=== PATIENT | male | born 1995 | race African-American/Black ===

== ENCOUNTER 2023-03-18 12:51 | Inpatient (IN) | payer OTHER, SELFPAY ==
[2023-03-18 12:57] VITALS: BP 116/80; BP 144/96; PULSE 68; PULSE 69; RESP 18; TEMP 36.5; O2SAT 100; O2SAT 99; BMI 26.6
--- NOTE | 2023-03-18 13:11 | ED_ITS ---
HPI - Psych General Chief Complaint: Psychiatric Symptoms Stated Complaint: SI WAS TRYING TO RUN INTO TRAFFIC Time Seen by Provider: 03/18/23 12:55 Source: patient, RN notes reviewed and old records reviewed Mode of arrival: ambulatory History of Present Illness HPI Narrative: 28-year-old male with no known past medical history presenting to the ED via EMS after being found on the [facility] border making SI and HI statements, threatening to run into traffic and or hang himself with sheet. Patient admits to attempting to hang himself with sheet [employer]. Reports SI with plan to hang himself, HI, auditory and visual hallucinations. States voices are telling him to hurt himself. Reports recently moved to this area from [place]. Reports compliance with prescribed medications. Denies abdominal pain, nausea/vomiting, CP/SOB Related Data Home Medications Medication Instructions Recorded Confirmed clonazepam 0.5 mg tablet 0.5 mg PO BID PRN Anxiety 03/18/23 03/18/23 clonidine HCl 0.1 mg tablet 0.1 mg PO TID 03/18/23 03/18/23 escitalopram oxalate 10 mg tablet 10 mg PO DAILY 03/18/23 03/18/23 mirtazapine 15 mg tablet 15 mg PO BEDTIME 03/18/23 03/18/23 oxcarbazepine 300 mg tablet 300 mg PO BID 03/18/23 03/18/23 Allergies Allergy/AdvReac Type Severity Reaction Status Date / Time No Known Allergies Allergy Verified 03/18/23 13:05 Review of Systems 2 Review of Systems: Constitutional: No Fever, No Chills,o Fatigue, No Malaise ENT/Mouth: o Ear Pain, No sore throat, No Rhinorrhea, No Swallowing Difficulty Eyes: No Eye Pain, No Swelling, No Redness,No Vision Changes Cardiovascular: No Chest Pain, No SOB,No Edema, No Palpitations Respiratory: No Cough, No Sputum, No Dyspnea Gastrointestinal: No Nausea, No Vomiting, No Diarrhea, No Constipation, No Abdominal pain Genitourinary: No irregular bleeding, No Dysuria, No Urinary Frequency, No Hematuria Musculoskeletal: No joint pain, No Myalgias, No Joint Swelling Skin: No Skin Lesions, No rash Neuro: No Weakness, No Headache Psych: No Anxiety/Panic, +Depression, +SI/HI/AH/VH, + Social Issues Yes all other systems are reviewed and are negative Constitutional: Constitutional: Reports as per [facility] Past Medical History Attestation statement: The following information was validated with the patient. Source: old records reviewed Social History Social History Alcohol intake: never Smoked in Last 30 Days: No Use of substances other than those prescribed or required for medical reasons: No Advance Directives: No Advance Directives Information Provided: No Healthcare Proxy: No Guardian: No Physical Exam 2 Vital Signs: Vital Signs: Last Vital Signs Temp 98.7 F 03/18/23 19:51 Pulse 61 03/19/23 06:35 Resp 16 03/19/23 06:35 BP 101/65 03/19/23 06:35 Pulse Ox 99 03/19/23 06:35 O2 Del Method Room Air 03/19/23 06:35 BMI result Body Mass Index 26.6 Const: General: cooperative and no acute distress O rientation/consciousness: patient oriented x3 Limitations: no limitations HEENT: Head: Yes normal to inspection and Yes atraumatic Ears: hearing grossly normal bilaterally General nose exam: Normal external nose present Face and sinus: Yes normal facial exam Throat: Yes posterior oropharynx normal, Yes uvula midline, No peritonsillar mass and No uvular edema Eyes: General: appearance normal, both eyes and all related structures EOM: EOMs intact bilaterally Neck: Other: No external swelling/king or erythema. No hematoma. No stridor Neck: Yes normal visual inspection, Yes full ROM, Yes no lymphadenopathy, Yes no meningeal signs, Yes supple, No anterior neck swelling and No torticollis Resp: Effort & Inspection: normal respiratory effort and no respiratory distress Auscultation: clear to auscultation bilaterally Cardio: Rate: regular rate Heart sounds: S1 normal heart sound present and S2 normal heart sound present GI: Inspection: Yes normal to inspection Palpation (GI): Soft to palpation, nontender, no guarding and not rigid Skin: Rashes: no rashes Wounds: no wounds Neuro: General: patient oriented x3, tone normal, no meningeal signs and CN's II-XI intact bilaterally Cranial nerves: Yes CN's II-XII intact bilaterally Gait exam (Neuro): Normal gait present Extrem: General: Yes normal to inspection Psych: Thought content: Suicidality present, Homicidality present and Hallucination(s) present auditory and visual Course Course Course Narrative: Labs reassuring. Tox screen negative. Patient medically cleared for care team evaluation. Physician observation initiated at 16:12 -1630--ED care transferred to [facility] pending care team evaluation Reevaluation(s) Reevaluation #1: Advised by nursing staff that soledad attempted to wrap sheets around his neck while in room. No ecchymosis to the neck, inability to manage secretions, denies ear pain, no hematemesis, no swelling of the oral pharynx, no conjunctival hemorrhage, hoarseness of the voice, no confusion. Bedding was removed from patients orom. At this time he is calm, and appears withdrawn. Pending CARE team evaluation. Time: 17:14 Reevaluation #2: VSS, attempt to wrap bed sheet around his neck and commit suicide, patient now is 1-1 observation under Section 12 and bed search is underway by care team. Time: 07:24 Medications Administered Generic Name Dose Route Start Last Admin Trade Name Freq PRN Reason Stop Dose Admin Clonazepam 0.5 mg 03/18/23 19:15 03/18/23 19:20 Clonazepam 0.5 Mg Tablet PO 0.5 mg BID PRN Administration Anxiety Clonidine HCl 0.1 mg 03/18/23 21:00 03/18/23 19:52 Clonidine Hcl 0.1 Mg Tablet PO 0.1 mg TID HAMILTON Administration Protocol Mirtazapine 15 mg 03/18/23 21:00 03/18/23 19:52 Mirtazapine 15 Mg Tablet PO 15 mg BEDTIME HAMILTON Administration Oxcarbazepine 300 mg 03/18/23 21:00 03/18/23 19:52 Oxcarbazepine 300 Mg Tablet PO 300 mg BID HAMILTON Administration Discontinued Medications Generic Name Dose Route Start Last Admin Trade Name Freq PRN Reason Stop Dose Admin Lorazepam 1 mg 03/18/23 13:21 03/18/23 13:30 Lorazepam 1 Mg Tablet PO 03/18/23 13:22 Not Given ONCE ONE Medical Decision Making Medical Decision Making [facility] Narrative: 28-year-old male with no known past medical history presenting to the ED via EMS after being found on the [place] border making SI and HI statements, threatening to run into traffic and or hang himself with sheet. On exam vital signs stable, NAD, eliciting suicidal, homicidal and hallucinations auditory and visual. Rule out organic causes and substance abuse. No evidence of strangulation, no neck hematoma, swelling or stridor. Talking in complete sentences. Plan: Labs, tox screen, care team consult Please refer to course for remaining clinical decision making, interpretation of labs/imaging results, and discussions with consultants and/or family members. Differential Diagnosis Differential Diagnoses: The differential diagnosis associated with the presentation includes As above Admission/Observation Consideration of admission/observation: Escalation of care including admission/observation considered Consult Healthcare Provider Management of the patient was discussed with: Behavioral Health Provider Lab Data MDM Lab Attestation statement: I reviewed the patient's lab results. 03/18/23 13:42 03/18/23 13:42 Labs: Lab Results 03/18/23 03/19/23 Range/Units 13:42 04:55 WBC 4.0 L (4.8-10.8) X10*3/uL RBC 5.27 (4.60-5.80) X10*6/uL Hgb 13.4 L (14.0-18.0) g/dl Hct 42.3 (42.0-52.0) % MCV 80.3 (80.0-98.0) fL MCH 25.4 L (27.0-33.0) pg MCHC 31.7 (31.0-36.0) g/dl RDW 13.6 (11.0-16.0) % Plt Count 147 L (160-400) X10*3/uL MPV 10.0 (9.4-12.4) fL Immature Gran % (Auto) 0.2 (0.0-0.4) % Neut % (Auto) 40.7 L (45-73) % Lymph % (Auto) 45.8 H (20-40) % Daniels % (Auto) 9.9 (2-11) % Eos % (Auto) 2.7 (0-4) % Baso % (Auto) 0.7 (0-2) % Lymph # (Auto) 1.9 (1.2-4.9) X10*3/uL Daniels # (Auto) 0.4 (0.1-1.2) X10*3/uL Eos # (Auto) 0.1 (0.0-0.4) X10*3/uL Baso # (Auto) 0.0 (0.0-0.2) X10*3/uL Abs Immat Gran (auto) 0.01 (0.00-0.03) X10*3/uL Absolute Neuts (auto) 1.6 L (2.0-8.3) x10*3/uL Absolute Nucleated RBC 0.000 (0.0-0.012) X10*3/uL Nucleated RBC % (auto) 0.0 (0.0-0.2) /100WBC Sodium 138 (135-145) mmol/L Potassium 4.2 (3.3-5.1) mmol/L Chloride 104 (96-108) mmol/L Carbon Dioxide 27 (22-29) mmol/L Anion Gap 11 L (12-20) BUN 16 (9-16) mg/dL Creatinine 0.94 (0.5-1.4) mg/dL Estim Creat Clear Calc 110.3 Estimated GFR > 60 Random Glucose 93 (60-115) mg/dL Calcium 9.5 (8.4-10.2) mg/dL Total Bilirubin 0.6 (0.0-1.0) mg/dL AST 18 (5-37) U/L ALT 36 (0-40) U/L Alkaline Phosphatase 45 (39-117) U/L Total Protein 7.4 (6.5-8.0) g/dL Albumin 4.4 (3.5-5.0) g/dL Urine Color Yellow Urine Appearance Clear Urine pH 6.0 (5.0-9.0) Ur Specific [place] 1.025 (1.005-1.025) Urine Protein Negative (Neg-Trace) mg/dL Urine Glucose (UA) Negative (Negative) mg/dL Urine Ketones Negative (Negative) mg/dL Urine Blood Trace H (Negative) Urine Nitrite Negative (Negative) Ur Leukocyte Esterase Negative (Negative) Urine RBC 3-5 H (0-2) /HPF Urine WBC 0-5 (0-5) /HPF Ur Squamous Epith Cells 0-2 (0-2) /HPF Urine Bacteria None Seen (None Seen) Hyaline Casts 0-2 (0-2) /LPF Salicylates < 5.0 L (15-30) mg/dL Urine Opiates Screen Not Detected (Not Detect) Urine Fentanyl Screen Not Detected (Not Detect) Acetaminophen < 17 (<30) mcg/mL Ur Barbiturates Screen Not Detected (Not Detect) Ur Phencyclidine Scrn Not Detected (Not Detect) Ur Amphetamines Screen Not Detected (Not Detect) U Benzodiazepines Scrn Not Detected (Not Detect) Urine Cocaine Screen Not Detected (Not Detect) U Marijuana (THC) Screen Not Detected (Not Detect) Ethyl Alcohol < 10 mg/dL COVID-19 ([facility]) Negative (Negative) COVID-19 Clin Com See Note Radiology Impression Discussion of test interpretation with radiology: I have reviewed the radiologist's reading. External Record Review External record reviewed: Inpatient record, Office record, Outpatient record, Prior outpatient labs, Prior outpatient radiology, Primary care record and Outside ED record Tests considered The following testing was considered but not selected: As above Social Determinants Patient?s care significantly limited by Social Determinants of Health including: Inadequate housing, Low income, Alcoholism and drug addiction in family, Problems related to primary support group and Unemployment Discharge Plan Discharge Clinical Impression: Suicidal ideation, Homicidal ideations, Hallucinations Patient Disposition: Still a Patient Prescriptions: No Action clonidine HCl 0.1 mg tablet 0.1 mg PO TID clonazepam 0.5 mg tablet 0.5 mg PO BID PRN (Reason: Anxiety) oxcarbazepine 300 mg tablet 300 mg PO BID mirtazapine 15 mg tablet 15 mg PO BEDTIME escitalopram oxalate 10 mg tablet 10 mg PO DAILY Interventions: [place]-Suicide Risk Severity Scale Last Done: 03/19/23 03:44
--- NOTE | 2023-03-18 13:13 | PC.NURSE ---
Notified Yanet AMEZCUA patient banging his head on wall stating get out of my head . stated he tried to hang himself with a sheet thats why his throat is hurting. Yanet AMEZCUA here to assess patient.
[2023-03-18 13:48] LABS: MANUAL DIFF FLAG NO
[2023-03-18 13:52] LABS: Basophils Percent Auto 0.7 % (0-2); Eosinophils Absolute Auto 0.1 X10*3/uL (0.0-0.4); Eosinophils Percent Auto 2.7 % (0-4); Hematocrit 42.3 % (42.0-52.0); Hemoglobin 13.4 g/dl (14.0-18.0); Imm Gran Abs Auto 0.01 X10*3/uL (0.00-0.03); Imm Gran Pct Auto 0.2 % (0.0-0.4); Lymphocytes Absolute Auto 1.9 X10*3/uL (1.2-4.9); Lymphocytes Percent Auto 45.8 % (20-40); Mean Corpuscular HGB Conc 31.7 g/dl (31.0-36.0); Mean Corpuscular Hemoglobin 25.4 pg (27.0-33.0); Mean Corpuscular Volume 80.3 fL (80.0-98.0); Monocytes Absolute Auto 0.4 X10*3/uL (0.1-1.2); Monocytes Percent Auto 9.9 % (2-11); Neutrophils Absolute Auto 1.6 x10*3/uL (2.0-8.3); Neutrophils Percent Auto 40.7 % (45-73); Platelet Count 147 X10*3/uL (160-400); Red Blood Count 5.27 X10*6/uL (4.60-5.80); Red Cell Distribution Width 13.6 % (11.0-16.0)
[2023-03-18 13:57] LABS: Appearance Urine Clear; Color Urine Yellow; Glucose Urine UA Negative (Negative); Leukocyte Esterase Urine Negative (Negative); Nitrite Urine Negative (Negative); Specific Gravity - Urine 1.025 (1.005-1.025); UMIC TRIGGER UACC YES; Urine Blood Trace (Negative); Urine Ketones Negative (Negative); Urine Protein Negative (Neg-Trace)
[2023-03-18 13:59] LABS: Bacteria Urine None Seen (None Seen); Hyaline Casts Urine 0-2 /LPF (0-2); Squamous Epithelial Cell Urine 0-2 /HPF (0-2); WBC Urine 0-5 /HPF (0-5)
[2023-03-18 14:06] LABS: Amphetamine Screen Urine Not Detected (Not Detect); Barbiturates, Urine Not Detected (Not Detect); Benzodiazepines Screen Urine Not Detected (Not Detect); Cannabinoid Screen Urine Not Detected (Not Detect); Cocaine Screen Urine Not Detected (Not Detect); Fentanyl, urine Not Detected (Not Detect); Opiate Screen Urine Not Detected (Not Detect); Phencyclidine Screen Urine Not Detected (Not Detect)
[2023-03-18 14:07] LABS: Alanine Aminotransferase 36 U/L (0-40); Albumin Level 4.4 g/dL (3.5-5.0); Alkaline Phosphatase 45 U/L (39-117); Anion Gap 11 (12-20); Aspartate Amino Transferase 18 U/L (5-37); Bilirubin Total 0.6 mg/dL (0.0-1.0); Blood Urea Nitrogen 16 mg/dL (9-16); Calcium 9.5 mg/dL (8.4-10.2); Carbon Dioxide 27 mmol/L (22-29); Chloride 104 mmol/L (96-108); Creatinine Clr Calc Pharmacy 110.3; Estimated Glomerular Filt Rate > 60; Glucose Random 93 mg/dL (60-115); Potassium 4.2 mmol/L (3.3-5.1); Sodium 138 mmol/L (135-145); Total Protein 7.4 g/dL (6.5-8.0)
[2023-03-18 14:13] LABS: Acetaminophen LAB < 17 mcg/mL (<30); Ethanol < 10 mg/dL; Salicylate < 5.0 mg/dL (15-30)
--- NOTE | 2023-03-18 17:09 | PC.NURSE ---
Patient tried to strangle himself with the blanket. Went in room attempted to remove he fought against taking it off we hit panic button. Security and staff came to assist. blanket removed from neck. Then blankets, sheets, and pillows removed from room. Is going to be sec. 12 inpatient [place] search [place].
--- NOTE | 2023-03-18 19:17 | PHA.MEDREC ---
Pharmacy Consult ? Medication Reconciliation Pharmacy has reviewed the medication reconciliation completed by Prashant.
[2023-03-18] MEDS: clonazePAM 0.5 MG TABLET PO (19:20)
[2023-03-18 19:51] VITALS: BP 113/69; PULSE 67; RESP 16; TEMP 37.1; O2SAT 98
[2023-03-18] MEDS: OXcarbazepine 300 MG TABLET PO (19:52)
[2023-03-18] MEDS: cloNIDine HCL 0.1 MG TABLET PO (19:52)
[2023-03-18] MEDS: Mirtazapine 15 MG TABLET PO (19:52)
--- NOTE | 2023-03-18 19:58 | PC.NURSE ---
Patient is placed on one-to-one observation for his suicidal attempt/gesture per provider's order, linens and blanket were made available for patient to ensure patient dignity, patient contracted for the safety, patient's disposition made aware requested to have send him to [facility], disposition per care team is section 12 inpatient bed search, patient contracted for the safety, patient was moved closer to Nurses station to enhance the supervision, VSS, Klonopin 0.5 mg administered at 1920 pending effect, compliant with HS medication, behavior non concerning at this time, watching TV, will continue to monitor.
[2023-03-19 05:24] LABS: COVID-19 Test Negative (Negative); IDNOW Serial# BCCEAD1C
--- NOTE | 2023-03-19 06:20 | PC.NURSE ---
Patient slept through the night, medication compliant, patient is on one-to-one for observation due to SA in the unit, medication compliant, disposition is section 12 inpatient bed search, will continue to monitor.
[2023-03-19 06:35] VITALS: BP 101/65; PULSE 61; RESP 16; O2SAT 99
[2023-03-19 09:42] VITALS: BP 128/69; PULSE 78; RESP 18; TEMP 36.6; O2SAT 99
[2023-03-19] MEDS: OXcarbazepine 150 MG TABLET PO ×2 (10:03→21:12)
[2023-03-19] MEDS: Escitalopram Oxalate 20 MG TABLET PO (10:03)
[2023-03-19 15:08] VITALS: RESP 18
--- NOTE | 2023-03-19 15:10 | PC.NURSE ---
Laci is currently on a 1:1 after placing a sheet around his neck and making SI statements yesterday. Today while on the 1:1 Laci was observed placing a pillow over his face when redirected from this behavior he began making statements toward staff and stating I'll punch you in the face . you better call security you're going to need them . Pt was able to calm down when the MD entered the room and he was told that behavior would not be tolerated. Laci verbalized understanding this. During morning med pass Laci stated that he was just in a facility and that they changed his dosage of trileptal to 150mg BID and Effexor 20mg once daily. He stated that the last prescriptions form Sept in the computer are not accurate as this facility was making medication adjustments. Laci did not disclose what facility he was just a patient in. Endorsing SI but without a plan today. Staff will continue to monitor.
[2023-03-19 15:40] VITALS: BP 123/82; PULSE 92; RESP 17; TEMP 36.8; O2SAT 98
--- NOTE | 2023-03-19 16:31 | PC.ADMIT ---
Laci is a 28-year-old male admitted from the pod to M3 on a CV for treatment of unspecified psychosis, SI/HI, and CAH telling him to harm himself. Tox screen negative. Pt is homeless, has a hx of inpatient admissions and stated he was recently discharged from [facility]. While pt was in the pod, pt attempted to strangle himself using a sheet and was placed on 1:1. Pt began making transphobic comments towards a staff member and was told he would be administratively discharged if he continued to make those comments. Upon arriving to M3, pt appeared anxious but was cooperative and remained in behavioral control. Skin check complete. Pt denies substance use, he's 2 years sober from ETOH. He endorses CAH telling him to harm himself and others, as well as VH of his child's mother. Pt reports unknown amount of weight loss due to decreased appetite and poor sleep. Pt was placed on 5 minute safety checks.
--- NOTE | 2023-03-19 17:05 | PC.NURSE ---
Pt declined flu vaccine at this time
[2023-03-19] MEDS: clonazePAM 0.5 MG TABLET PO (18:11)
[2023-03-19 20:48] VITALS: BP 133/74; PULSE 85; TEMP 36.7; O2SAT 100
[2023-03-19] MEDS: Mirtazapine 15 MG TABLET PO (21:12)
[2023-03-19] MEDS: cloNIDine HCL 0.1 MG TABLET PO (21:12)
[2023-03-20 07:00] VITALS: BMI 26.7
[2023-03-20 08:50] LABS: Alanine Aminotransferase 30 U/L (0-40); Alkaline Phosphatase 46 U/L (39-117); Anion Gap 11 (12-20); Aspartate Amino Transferase 16 U/L (5-37); Bilirubin Total 0.4 mg/dL (0.0-1.0); Blood Urea Nitrogen 19 mg/dL (9-16); Carbon Dioxide 25 mmol/L (22-29); Chloride 107 mmol/L (96-108); Cholesterol 204 mg/dL (<200); Creatinine Clr Calc Pharmacy 120.6; Estimated Glomerular Filt Rate > 60; Glucose Fasting 96 mg/dL (60-99); HDL Cholesterol 49 mg/dL (>40); LDL Cholesterol Calculated 148 mg/dL (<100); Potassium 4.1 mmol/L (3.3-5.1); Sodium 139 mmol/L (135-145); Total Protein 6.7 g/dL (6.5-8.0); Triglycerides 37 mg/dL (<150)
[2023-03-20 09:08] LABS: Thyroid Stimulating Hormone 0.94 uIU/mL (0.32-4.0)
[2023-03-20 09:21] LABS: Folate 6.1 ng/mL (> or = 4.0); Vitamin B12 1186 pg/mL (200-900)
[2023-03-20 09:49] LABS: Estimated Average Glucose 105 mg/dL; Hemoglobin A1c % 5.3 % (<6.0)
--- NOTE | 2023-03-20 09:51 | P.HPPS_ITS ---
HPI Date of Service: 03/20/23 Chief Complaint: SI HPI Narrative: per CARE team perry, pt was BIBA after being found walking between [place]. he was reportedly self-dialoguing and endorsing SI. on interview with CARE team pt endorsed SI/HI/AH/VH. he endorsed CAH to kill himself. pt was reported to have engaged in head banging while in the ED, reason unknown. informed CARE team staff he was struggling to sleep and eat. also informed CARE team staff that he had been discharged from [facility] earlier the same day of presentation. pt attempted to asphyxiate himself with bedsheet while in the ED as well. on interview with MD, pt makes same complaints as above. he states he is seeing things that aren't there and talking back to things that aren't there, which is an unusual degree of insight regarding hallucinations. his thoughts are linear and he does not ever appear delayed or distracted; in short, he does not appear someone experiencing AVH. in addition, his claims of VH, of a 6 foot 4 mr ana maría who follows him, are simply incredible, in the literal sense of that word. he says he is depressed and interested in aftercare services and a place to live. MD informed pt we will be unable to help him with a place to live and will likely discharge him to a senior living in the [facility] with aftercare services at the [facility], to which he is already connected. pt was focused on having access to his phone so he could read the [place] version of the bible, which he finds soothing. MD educated pt about antipsychotics and suggested stopping trileptal as not indicated and trying a neuroleptic such as abilify or geodon. pt declined and stated he had really just started his present regimen recently and wanted to stay on it without changes. MD agreed to continue pt on his present medications for now. Past Psychiatric History: hosps: reports 1 prior, at [facility], for about 7-10 days, immediately preceding the current admission SA: quite a few times. states he tried a couple days ago with a sheet. cutting, asphyxiating, running into traffic. SIB: reports h/o cutting, remote. also head banging as recently as 2 days ago. HIB: no. not yet. outpt: h/o outpt Tx at [facility], reportedly MRE about 7 months ago. [facility] for meds only. 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 Medical Evaluation Reviewed: Yes [facility], [facility] Family History: reports brother has made suicide attempts (to MD. to CARE team denied any SA in family). reported depression and anxiety in his family, no more specific than that Social History: had been living in [place]. wants to get back there; homeless currently. [facility], now out. had been working as [employer] recently. stated he has poor relationship with family aside from some sibnlings but declined to provide contact information for those siblings when asked. reported 9 sibs. 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 has been to detoxes and rehabs, most recently about 2 years ago. 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. Trauma History: pt reports, my sister's friends felt on me when i was little. and made me feel on them. 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 per CARE team perry, pt reported trauma of childhood bullying and improper discipline. Diagnostics Vital Signs (24Hr): Vital Signs - 24 hr 03/19/23 15:08 03/19/23 15:40 03/19/23 20:48 Temperature 98.2 F 98.0 F Pulse Rate 92 85 Respiratory Rate 18 17 Blood Pressure 123/82 133/74 Pulse Oximetry 98 100 Oxygen Delivery Method Room Air Room Air BMI result Body Mass Index 26.6 Labs 03/18/23 13:42 03/20/23 08:21 Labs: Laboratory Results - last 48 hr 03/18/23 03/19/23 03/20/23 13:42 04:55 08:21 WBC 4.0 L RBC 5.27 Hgb 13.4 L Hct 42.3 MCV 80.3 MCH 25.4 L MCHC 31.7 RDW 13.6 Plt Count 147 L MPV 10.0 Immature Gran % (Auto) 0.2 Neut % (Auto) 40.7 L Lymph % (Auto) 45.8 H [place] % (Auto) 9.9 Eos % (Auto) 2.7 Baso % (Auto) 0.7 Lymph # (Auto) 1.9 [place] # (Auto) 0.4 Eos # (Auto) 0.1 Baso # (Auto) 0.0 Abs Immat Gran (auto) 0.01 Absolute Neuts (auto) 1.6 L Absolute Nucleated RBC 0.000 Nucleated RBC % (auto) 0.0 Sodium 138 139 Potassium 4.2 4.1 Chloride 104 107 Carbon Dioxide 27 25 Anion Gap 11 L 11 L BUN 16 19 H Creatinine 0.94 0.86 Estim Creat Clear Calc 110.3 120.6 Estimated GFR > 60 > 60 Random Glucose 93 Fasting Glucose 96 Estimat Average Glucose 105 Hemoglobin A1c % 5.3 Calcium 9.5 9.0 Total Bilirubin 0.6 0.4 AST 18 16 ALT 36 30 Alkaline Phosphatase 45 46 Total Protein 7.4 6.7 Albumin 4.4 4.0 Triglycerides 37 Cholesterol 204 H LDL Cholesterol, Calc 148 H HDL Cholesterol 49 Vitamin B12 1186 H Folate 6.1 TSH 0.94 Free T4 0.90 Urine Color Yellow Urine Appearance Clear Urine pH 6.0 Ur Specific [place] 1.025 Urine Protein Negative Urine Glucose (UA) Negative Urine Ketones Negative Urine Blood Trace H Urine Nitrite Negative Ur Leukocyte Esterase Negative Urine RBC 3-5 H Urine WBC 0-5 Ur Squamous Epith Cells 0-2 Urine Bacteria None Seen Hyaline Casts 0-2 Salicylates < 5.0 L Urine Opiates Screen Not Detected Urine Fentanyl Screen Not Detected Acetaminophen < 17 Ur Barbiturates Screen Not Detected Ur Phencyclidine Scrn Not Detected Ur Amphetamines Screen Not Detected U Benzodiazepines Scrn Not Detected Urine Cocaine Screen Not Detected U Marijuana (THC) Screen Not Detected Ethyl Alcohol < 10 COVID-19 ([facility]) Negative COVID-19 Clin Com See Note Meds/Allergies Meds Home Medications Medication Instructions Recorded Confirmed Type clonazepam 0.5 mg tablet 0.5 mg PO BID PRN Anxiety 03/18/23 03/18/23 History clonidine HCl 0.1 mg tablet 0.1 mg PO TID 03/18/23 03/18/23 History escitalopram oxalate 10 mg tablet 10 mg PO DAILY 03/18/23 03/18/23 History mirtazapine 15 mg tablet 15 mg PO BEDTIME 03/18/23 03/18/23 History oxcarbazepine 300 mg tablet 300 mg PO BID 03/18/23 03/18/23 History Allergies Allergies Allergy/AdvReac Type Severity Reaction Status Date / Time No Known Allergies Allergy Verified 03/18/23 13:05 Mental Status Exam Mental Status Exam Narrative: calm, cooperative. adequately dressed. variably making normal to very excessive and intense eye contact while on unit. no PMA/PMR. speech soft, nml rate, amount, latency. thoughts linear and logical. no signs of delusions or paranoia. affect constricted, normo-intense, non-labile. denies SI/SIBI at the time of the interview but endorses SI with plan to hang himself as recently as earlier this morning. denies HI. endorsing AVH: reports he's hearing voices that aren't even there, and seeing things that aren't even there. there's this bryanna, Mr. Ochoa. he's 6 foot 4. he follows me around. reports AH of hurt yourself. you're worthless, and similar. Assessment & Plan Assessment & Plan (1) Malingering: Status: Acute Code(s): Z76.5 - Malingerer [conscious simulation] Plan continue current regimen, as pt declined any changes. pt declined anti- psychotic medication, despite his reported Sx and desire for medication. now on 1:1 for safety after provocative behaviors and physical aggression toward staff in the context of limit-setting. Patient educated on: therapeutic strategies Reason for continued inpatient stay Substantial Risk for: harm to self and harm to others Statement Statement: I have reviewed the history and physical and performed a pertinent examination on my patient. No changes have occurred unless specified. If the History and Physical was not performed prior to admission, the Hospitalist's service will be consulted for completing the admission physical. Time Spent With Patient Time: Total time managing care of this patient today __75__ minutes.
[2023-03-20 09:52] VITALS: BP 119/68; PULSE 75; RESP 18; TEMP 36.6; O2SAT 99
[2023-03-20] MEDS: Escitalopram Oxalate 20 MG TABLET PO (09:55)
[2023-03-20] MEDS: OXcarbazepine 150 MG TABLET PO (09:55)
[2023-03-20] MEDS: Haloperidol Lactate 5 MG/ML VIAL 10 MG IM (16:44)
[2023-03-20] MEDS: diphenhydrAMINE HCL 50 MG/ML VIAL IM (16:44)
[2023-03-20] MEDS: LORazepam 2 MG/ML VIAL IM (16:44)
--- NOTE | 2023-03-20 17:21 | PC.NURSE ---
At approximately 1615 Pt verbalized belief that no one cares. you are just going to discharge me and verbalized being distressed about not being allowed to use his cell phone. He was offered po medication prn, allowed to vent. He declined prn medication. At 1620 check pt was observed playing with a pillowcase. At 1625 check pt was seen attempting to choke self with a pillowcase. Two staff intervened and pillow case was removed from pt grasp. Two staff remained with pt and he made another attempt to asphyxiate himself with linens. Code assist was called and we requested that pt wear safety smock and move to anteroom for his safety. Pt refused. Staff and security attempted to move pt physically and he became physically aggressive to staff and security.1630 Pt was placed in restraint chair and later medicated per MD order. He remained on 1:1 in the anteroom in restraint chair until 1715 when he was released. He remains in anteroom on 1:1 at this time.
--- NOTE | 2023-03-20 22:05 | PM.EVENT ---
Event Note Date of Service: 03/20/23 Event Note: MD made aware around 1630 this afternoon of pt agitation, parasuicidal behavior, and physical aggression toward staff. MD ordered medication and physical restraints, saw pt while he was in chair restraint and while he received IM medication. Time Spent With Patient Time: Total time managing care of this patient today __75__ minutes.
[2023-03-21 10:04] VITALS: BP 132/78; PULSE 84; RESP 18; TEMP 36.5; O2SAT 97
[2023-03-21] MEDS: Escitalopram Oxalate 20 MG TABLET PO (10:09)
[2023-03-21] MEDS: OXcarbazepine 150 MG TABLET PO (10:09)
[2023-03-21 13:55] VITALS: BP 109/67; PULSE 83; RESP 18; TEMP 37.2; O2SAT 97
[2023-03-21] MEDS: Ondansetron ODT 4 MG TAB.RAPDIS TRANSLINGU (13:59)
[2023-03-21] MEDS: clonazePAM 0.5 MG TABLET PO (14:32)
--- NOTE | 2023-03-21 15:02 | P.PNPSI_ITS ---
Subjective Subjective Date of Service: 03/21/23 Reason For Visit: SI Interim History: in safety smock in restraint room. states he feels better this morning, no SI/SIBI, asking to get back into his own clothes and his room. agrees, with plan to continue 1:1 for now. per staff, racing thoughts yesterday, passive SI. was informed couldn't use phone then began attempting to tie pillowcase around neck. required physical and mechanical restraints and safety smock overnight. Mental Status Exam Mental Status Exam Narrative: calm, cooperative. adequately dressed. no PMA/PMR. speech nml loudness, rate, amount, latency. thoughts linear and logical. no signs of delusions or paranoia. affect constricted, normo-intense, non-labile. denies SI/SIBI at the time of the interview. no HI/AVH expressed. Diagnostics Vital Signs (24Hr): Vital Signs - 24 hr 03/21/23 10:04 03/21/23 13:55 Temperature 97.7 F 99.0 F Pulse Rate 84 83 Respiratory Rate 18 18 Blood Pressure 132/78 109/67 Pulse Oximetry 97 97 Oxygen Delivery Method Room Air Room Air BMI result Body Mass Index 26.7 Labs 03/18/23 13:42 03/20/23 08:21 Labs: Laboratory Results - last 48 hr 03/20/23 08:21 Sodium 139 Potassium 4.1 Chloride 107 Carbon Dioxide 25 Anion Gap 11 L BUN 19 H Creatinine 0.86 Estim Creat Clear Calc 120.6 Estimated GFR > 60 Fasting Glucose 96 Estimat Average Glucose 105 Hemoglobin A1c % 5.3 Calcium 9.0 Total Bilirubin 0.4 AST 16 ALT 30 Alkaline Phosphatase 46 Total Protein 6.7 Albumin 4.0 Triglycerides 37 Cholesterol 204 H LDL Cholesterol, Calc 148 H HDL Cholesterol 49 Vitamin B12 1186 H Folate 6.1 TSH 0.94 Free T4 0.90 Medications Medications Current Medications Acetaminophen (Acetaminophen 325 Mg Tablet) 650 mg PO Q6H PRN PRN Reason: Headache/Pain Mild Scale (1-3) Al Hydroxide/Mg Hydroxide (Magnesium Hydrox/Alum Hydrox 30 Ml Oral.Susp) 30 ml PO Q6H PRN PRN Reason: Heartburn/Nausea Clonazepam (Clonazepam 0.5 Mg Tablet) 0.5 mg PO BID PRN PRN Reason: Anxiety Last Admin: 09/29/23 14:32 Dose: 0.5 mg Clonidine HCl (Clonidine Hcl 0.1 Mg Tablet) 0.1 mg PO TID [facility]; Protocol Last Admin: 03/21/23 10:10 Dose: Not Given Escitalopram Oxalate (Escitalopram Oxalate 20 Mg Tablet) 20 mg PO DAILY [facility] Last Admin: 03/21/23 10:09 Dose: 20 mg Hydroxyzine HCl (Hydroxyzine Hcl 25 Mg Tablet) 25 mg PO Q6H PRN PRN Reason: Anxiety Magnesium Hydroxide (Milk Of Magnesia 30 Ml Oral.Susp) 30 ml PO DAILY PRN PRN Reason: Constipation Mirtazapine (Mirtazapine 15 Mg Tablet) 15 mg PO BEDTIME [facility] Last Admin: 03/20/23 21:59 Dose: Not Given Nicotine Polacrilex (Nicotine Polacrilex 2 Mg Gum) 4 mg BUCCAL Q2H PRN PRN Reason: Nicotine Cravings Ondansetron HCl (Ondansetron Odt 4 Mg Tab.Rapdis) 4 mg TRANSLINGU Q6H PRN PRN Reason: Vomiting Last Admin: 03/21/23 13:59 Dose: 4 mg Oxcarbazepine (Oxcarbazepine 150 Mg Tablet) 150 mg PO BID [facility] Last Admin: 03/21/23 10:09 Dose: 150 mg Trazodone HCl (Trazodone Hcl 50 Mg Tablet) 50 mg PO BEDTIME MRX1 PRN PRN Reason: Insomnia Allergies Allergies Allergy/AdvReac Type Severity Reaction Status Date / Time No Known Allergies Allergy Verified 03/18/23 13:05 Assessment & Plan Assessment & Plan (1) Malingering: Status: Acute Code(s): Z76.5 - Malingerer [conscious simulation] Plan 03/20: continue current regimen, as pt declined any changes. pt declined anti- psychotic medication, despite his reported Sx and desire for medication. now on 1:1 for safety after provocative behaviors and physical aggression toward staff in the context of limit-setting. 03/21: allowed out of restraint room and provided his own clothing. reports he is feeling better and has no SI/SIBI today. remains on 1:1 for now. continue current mgmt otherwise. Reason for continued inpatient stay Substantial Risk for: inability to function Time Spent With Patient Time: Total time managing care of this patient today _25___ minutes.
[2023-03-21] MEDS: LORazepam 1 MG TABLET 2 MG PO (18:08)
[2023-03-21] MEDS: diphenhydrAMINE HCL 25 MG CAPSULE 50 MG PO (18:08)
[2023-03-21] MEDS: Benztropine Mesylate 1 MG TABLET PO (18:09)
[2023-03-21 18:10] VITALS: BP 144/96; PULSE 89; RESP 20; TEMP 37.2; O2SAT 99
[2023-03-21] MEDS: diphenhydrAMINE HCL 50 MG/ML VIAL IM (18:40)
[2023-03-21] MEDS: Benztropine Mesylate 2 MG/2 ML VIAL 1 MG IM (18:40)
[2023-03-21 19:05] VITALS: BP 119/67; PULSE 83; RESP 18; TEMP 37.1; O2SAT 99
--- NOTE | 2023-03-21 20:04 | PC.NURSE ---
Laci reported to tech writer that he felt his jaw was Locking, I'm having difficulty opening it. Dr. Wong notified, Cogentin 1mg, Benadryl 50mg, and ATIVAN 2mg given PO. He then reported he was having difficulty breathing o2 was 99% upon assessment tongue appeared swollen. Dr. Wong notified Benadryl 50mg and Cogentin 1mg given IM. VS obtained, upon reassessment tongue appeared normal, patient was talking and reported feeling Better.
[2023-03-22] MEDS: Escitalopram Oxalate 20 MG TABLET PO (08:37)
[2023-03-22] MEDS: OXcarbazepine 150 MG TABLET PO ×2 (08:38→22:07)
[2023-03-22 10:42] VITALS: BP 96/56; PULSE 69; TEMP 36.6; O2SAT 97
[2023-03-22 15:47] LABS: COVID-19 Test Negative (Negative); IDNOW Serial# 08D9AD1C
[2023-03-22] MEDS: clonazePAM 0.5 MG TABLET PO (18:20)
[2023-03-22 21:20] VITALS: BP 126/76; PULSE 73; RESP 18; TEMP 36.6; O2SAT 99
--- NOTE | 2023-03-22 21:25 | P.PNPSI_ITS ---
Subjective Subjective Date of Service: 03/22/23 Reason For Visit: SI Interim History: pt reports feeling safe now, improved mood, no longer suicidal. asking to come off of 1:1 and to be allowed to shower unobserved. agree to change pt status to Q5 min checks. remains interested in getting gabe delores version of the bible. AH continue. per staff, refused clonidine yesterday and this morning. throat Sx from yesterday completely resolved. asking to use his phone. vomiting this morning. Mental Status Exam Mental Status Exam Narrative: calm, cooperative. adequately dressed. no PMA/PMR. speech nml loudness, rate, amount, latency. thoughts linear and logical. no signs of delusions or paranoia. affect constricted, normo-intense, non-labile. denies SI/SIBI at the time of the interview. +AH. no HI/VH expressed. Diagnostics Vital Signs (24Hr): Vital Signs - 24 hr 03/22/23 10:42 Temperature 98 F Pulse Rate 69 Blood Pressure 96/56 L Pulse Oximetry 97 Oxygen Delivery Method Room Air BMI result Body Mass Index 26.7 Labs 03/18/23 13:42 03/20/23 08:21 Labs: Laboratory Results - last 48 hr 03/22/23 15:25 COVID-19 ([facility]) Negative COVID-19 Clin Com See Note Medications Medications Current Medications Acetaminophen (Acetaminophen 325 Mg Tablet) 650 mg PO Q6H PRN PRN Reason: Headache/Pain Mild Scale (1-3) Al Hydroxide/Mg Hydroxide (Magnesium Hydrox/Alum Hydrox 30 Ml Oral.Susp) 30 ml PO Q6H PRN PRN Reason: Heartburn/Nausea Clonazepam (Clonazepam 0.5 Mg Tablet) 0.5 mg PO BID PRN PRN Reason: Anxiety Last Admin: 03/22/23 18:20 Dose: 0.5 mg Clonidine HCl (Clonidine Hcl 0.1 Mg Tablet) 0.1 mg PO TID [facility]; Protocol Last Admin: 03/22/23 15:30 Dose: Not Given Escitalopram Oxalate (Escitalopram Oxalate 20 Mg Tablet) 20 mg PO DAILY [facility] Last Admin: 03/22/23 08:37 Dose: 20 mg Hydroxyzine HCl (Hydroxyzine Hcl 25 Mg Tablet) 25 mg PO Q6H PRN PRN Reason: Anxiety Magnesium Hydroxide (Milk Of Magnesia 30 Ml Oral.Susp) 30 ml PO DAILY PRN PRN Reason: Constipation Mirtazapine (Mirtazapine 15 Mg Tablet) 15 mg PO BEDTIME [facility] Last Admin: 03/21/23 23:50 Dose: Not Given Nicotine Polacrilex (Nicotine Polacrilex 2 Mg Gum) 4 mg BUCCAL Q2H PRN PRN Reason: Nicotine Cravings Ondansetron HCl (Ondansetron Odt 4 Mg Tab.Rapdis) 4 mg TRANSLINGU Q6H PRN PRN Reason: Vomiting Last Admin: 03/21/23 13:59 Dose: 4 mg Oxcarbazepine (Oxcarbazepine 150 Mg Tablet) 150 mg PO BID [facility] Last Admin: 03/22/23 08:38 Dose: 150 mg Trazodone HCl (Trazodone Hcl 50 Mg Tablet) 50 mg PO BEDTIME MRX1 PRN PRN Reason: Insomnia Allergies Allergies Allergy/AdvReac Type Severity Reaction Status Date / Time No Known Allergies Allergy Verified 03/18/23 13:05 Assessment & Plan Assessment & Plan (1) Malingering: Status: Acute Code(s): Z76.5 - Malingerer [conscious simulation] Plan 03/20: continue current regimen, as pt declined any changes. pt declined anti- psychotic medication, despite his reported Sx and desire for medication. now on 1:1 for safety after provocative behaviors and physical aggression toward staff in the context of limit-setting. 03/21: allowed out of restraint room and provided his own clothing. reports he is feeling better and has no SI/SIBI today. remains on 1:1 for now. continue current mgmt otherwise. 03/22: states he is feeling better and now safe. AH continue. changed to Q5 min checks. continue current mgmt. Reason for continued inpatient stay Substantial Risk for: harm to self, inability to function and rapid decompensation Time Spent With Patient Time: Total time managing care of this patient today ____ minutes.
[2023-03-22] MEDS: Mirtazapine 15 MG TABLET PO (22:07)
[2023-03-23 08:30] VITALS: BP 112/73; PULSE 83; RESP 16; TEMP 36.2; O2SAT 96
[2023-03-23] MEDS: OXcarbazepine 150 MG TABLET PO (08:31)
[2023-03-23] MEDS: Escitalopram Oxalate 20 MG TABLET PO (08:31)
--- NOTE | 2023-03-23 15:05 | PC.NURSE ---
Laci is alert, fully oriented, cooperative with discharge process. He denies plan or intent to harm self or others. HE verbalizes understanding of discharge instructions including appointments and medications. He denies physical complaint.
--- NOTE | 2023-03-23 16:45 | P.DS_ITS ---
DS: Providers Provider Date of Service: 03/23/23 Date of admission: 03/19/23 15:11 Primary care physician: None Physician DS: Diagnosis Discharge Diagnosis (1) Malingering: Status: Acute DS: Medications Discharge Medications Home Medications: Home Medications Medication Instructions Recorded Confirmed clonazepam 0.5 mg tablet 0.5 mg PO BID PRN Anxiety 03/18/23 03/18/23 clonidine HCl 0.1 mg tablet 0.1 mg PO TID 03/18/23 03/18/23 mirtazapine 15 mg tablet 15 mg PO BEDTIME 03/18/23 03/18/23 Previous Rx's Medication Instructions Recorded escitalopram oxalate 20 mg tablet 20 mg PO DAILY #0 tabs 03/23/23 oxcarbazepine 300 mg tablet 300 mg PO BID 150 days #0 tabs 03/23/23 Mental Status Exam Mental Status Exam Narrative: calm, cooperative. adequately dressed. no PMA/PMR. speech nml loudness, rate, amount, latency. thoughts linear and logical. no signs of delusions or paranoia. affect constricted, normo-intense, non-labile. denies SI/SIBI at the time of the interview. +AH. no HI. endorsing AVH of you're not worth it, and you're worthless. also endorsing VH of Mr. Ochoa. Data Data Completed and Pending Completed studies during hospitalization [Text1]: 03/18/23 03/19/23 03/20/23 13:42 04:55 08:21 WBC 4.0 L RBC 5.27 Hgb 13.4 L Hct 42.3 MCV 80.3 MCH 25.4 L MCHC 31.7 RDW 13.6 Plt Count 147 L MPV 10.0 Immature Gran % (Auto) 0.2 Neut % (Auto) 40.7 L Lymph % (Auto) 45.8 H [place] % (Auto) 9.9 Eos % (Auto) 2.7 Baso % (Auto) 0.7 Lymph # (Auto) 1.9 [place] # (Auto) 0.4 Eos # (Auto) 0.1 Baso # (Auto) 0.0 Abs Immat Gran (auto) 0.01 Absolute Neuts (auto) 1.6 L Absolute Nucleated RBC 0.000 Nucleated RBC % (auto) 0.0 Sodium 138 139 Potassium 4.2 4.1 Chloride 104 107 Carbon Dioxide 27 25 Anion Gap 11 L 11 L BUN 16 19 H Creatinine 0.94 0.86 Estim Creat Clear Calc 110.3 120.6 Estimated GFR > 60 > 60 Random Glucose 93 Fasting Glucose 96 Estimat Average Glucose 105 Hemoglobin A1c % 5.3 Calcium 9.5 9.0 Total Bilirubin 0.6 0.4 AST 18 16 ALT 36 30 Alkaline Phosphatase 45 46 Total Protein 7.4 6.7 Albumin 4.4 4.0 Triglycerides 37 Cholesterol 204 H LDL Cholesterol, Calc 148 H HDL Cholesterol 49 Vitamin B12 1186 H Folate 6.1 TSH 0.94 Free T4 0.90 Urine Color Yellow Urine Appearance Clear Urine pH 6.0 Ur Specific [place] 1.025 Urine Protein Negative Urine Glucose (UA) Negative Urine Ketones Negative Urine Blood Trace H Urine Nitrite Negative Ur Leukocyte Esterase Negative Urine RBC 3-5 H Urine WBC 0-5 Ur Squamous Epith Cells 0-2 Urine Bacteria None Seen Hyaline Casts 0-2 Salicylates < 5.0 L Urine Opiates Screen Not Detected Urine Fentanyl Screen Not Detected Acetaminophen < 17 Ur Barbiturates Screen Not Detected Ur Phencyclidine Scrn Not Detected Ur Amphetamines Screen Not Detected U Benzodiazepines Scrn Not Detected Urine Cocaine Screen Not Detected U Marijuana (THC) Screen Not Detected Ethyl Alcohol < 10 COVID-19 ([facility]) Negative COVID-19 Clin Com See Note 03/22/23 15:25 WBC RBC Hgb Hct MCV MCH MCHC RDW Plt Count MPV Immature Gran % (Auto) Neut % (Auto) Lymph % (Auto) [place] % (Auto) Eos % (Auto) Baso % (Auto) Lymph # (Auto) [place] # (Auto) Eos # (Auto) Baso # (Auto) Abs Immat Gran (auto) Absolute Neuts (auto) Absolute Nucleated RBC Nucleated RBC % (auto) Sodium Potassium Chloride Carbon Dioxide Anion Gap BUN Creatinine Estim Creat Clear Calc Estimated GFR Random Glucose Fasting Glucose Estimat Average Glucose Hemoglobin A1c % Calcium Total Bilirubin AST ALT Alkaline Phosphatase Total Protein Albumin Triglycerides Cholesterol LDL Cholesterol, Calc HDL Cholesterol Vitamin B12 Folate TSH Free T4 Urine Color Urine Appearance Urine pH Ur Specific [place] Urine Protein Urine Glucose (UA) Urine Ketones Urine Blood Urine Nitrite Ur Leukocyte Esterase Urine RBC Urine WBC Ur Squamous Epith Cells Urine Bacteria Hyaline Casts Salicylates Urine Opiates Screen Urine Fentanyl Screen Acetaminophen Ur Barbiturates Screen Ur Phencyclidine Scrn Ur Amphetamines Screen U Benzodiazepines Scrn Urine Cocaine Screen U Marijuana (THC) Screen Ethyl Alcohol COVID-19 ([facility]) Negative COVID-19 Clin Com See Note DS: Summary Hospital Course Hospital Course: per 03/20 admission note: per CARE team perry, pt was BIBA after being found walking between [place] and [place]. he was reportedly self-dialoguing and endorsing SI. on interview with CARE team pt endorsed SI/HI/AH/VH. he endorsed CAH to kill himself. pt was reported to have engaged in head banging while in the ED, reason unknown. informed CARE team staff he was struggling to sleep and eat. also informed CARE team staff that he had been discharged from [facility] earlier the same day of presentation. pt attempted to asphyxiate himself with bedsheet while in the ED as well. on interview with , pt makes same complaints as above. he states he is seeing things that aren't there and talking back to things that aren't there, which is an unusual degree of insight regarding hallucinations. his thoughts are linear and he does not ever appear delayed or distracted; in short, he does not appear someone experiencing AVH. in addition, his claims of VH, of a 6 foot 4 mr ana maría who follows him, are simply incredible, in the literal sense of that word. he says he is depressed and interested in aftercare services and a place to live. informed pt we will be unable to help him with a place to live and will likely discharge him to a correction in the [facility] with aftercare services at the [facility], to which he is already connected. pt was focused on having access to his phone so he could read the Artsy version of the bible, which he finds soothing. educated pt about antipsychotics and suggested stopping trileptal as not indicated and trying a neuroleptic such as abilify or geodon. pt declined and stated he had really just started his present regimen recently and wanted to stay on it without changes. agreed to continue pt on his present medications for now. Past Psychiatric History: hosps: reports 1 prior, at [facility], for about 7-10 days, immediately preceding the current admission SA: quite a few times. states he tried a couple days ago with a sheet. cutting, asphyxiating, running into traffic. SIB: reports h/o cutting, remote. also head banging as recently as 2 days ago. HIB: no. not yet. outpt: h/o outpt Tx at [facility], reportedly MRE about 7 months ago. [facility] for meds only. 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 Medical Evaluation Reviewed: Yes [facility] Family History: reports brother has made suicide attempts (to MD. to CARE team denied any SA in family). reported depression and anxiety in his family, no more specific than that Social History: had been living in [place]. wants to get back there; homeless currently. was @ [employer] [facility] [employer] for about 1 year, now out. 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 stated he has poor relationship with family aside from some sibnlings but declined to provide contact information for those siblings when asked. reported 9 sibs. 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 has been to detoxes and rehabs, most recently about 2 years ago. has a women's lacrosse coach through the [facility]. Trauma History: pt reports, my sister's friends felt on me when i was little. and made me feel on them. 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 per CARE team perry, pt reported trauma of childhood bullying and improper di scipline. 03/21: in safety smock in restraint room. states he feels better this morning, no SI/SIBI, asking to get back into his own clothes and his room. agrees, with plan to continue 1:1 for now. per staff, racing thoughts yesterday, passive SI. was informed couldn't use phone then began attempting to tie pillowcase around neck. required physical and mechanical restraints and safety smock overnight. 03/22: pt reports feeling safe now, improved mood, no longer suicidal. asking to come off of 1:1 and to be allowed to shower unobserved. agree to change pt status to Q5 min checks. remains interested in getting gabe delores version of the bible. AH continue. per staff, refused clonidine yesterday and this morning. throat Sx from yesterday completely resolved. asking to use his phone. vomiting this morning. 03/23: per nursing staff pt reports he is feeling unsafe without his phone this morning. he declined PRN medication, 1:1 staffing, or headphones for coping. later in day on seeing MD he expressed frustration at not having his phone, saying he was not feeling safe here, saying he wanted to transfer to [facility]. he stated there were less voices there. he believes because he is not getting his phone he is not being helped here. he requested discharge, saying he plans to seek help. seek better help. he stated he would pursue a higher level of care. he was informed this is the highest level of mental health care available, which frustrated him. he was advised to remain in the hospital at least until tomorrow when SW would be here to help secure him a bed at a correction and transportation. he declined, insisting on leaving this afternoon. as he was not deemed a threat to himself or others, his wish was granted. Precis: 03/20: continue current regimen, as pt declined any changes. pt declined anti- psychotic medication, despite his reported Sx and desire for medication. now on 1:1 for safety after provocative behaviors and physical aggression toward staff in the context of limit-setting. 03/21: allowed out of restraint room and provided his own clothing. reports he is feeling better and has no SI/SIBI today. remains on 1:1 for now. continue current mgmt otherwise. 03/22: states he is feeling better and now safe. AH continue. changed to Q5 min checks. continue current mgmt. 03/23: not feeling safe without his phone, asking for transfer to [facility]. when that is declined, demanding discharge. refuses to remain until tomorrow for aftercare and housing arrangements. discharged as per his request. Time Spent with Patient Time attestation: Total time managing care of this patient today ____ minutes. Time spent: Greater than 30 minutes Discharge Plan Discharge Patient Disposition: Left Against Medical Advice Discharge Diagnosis: Malingering Referrals: [facility] [Provider Group] - 1 Week (walk in hours are Friday through Friday 830am to 4p) Dana Zhang MD [Physician] - 1 Week (Please call to make your own appointment. You are discharging on the weekend so we are unable to do that for you. ) Discharge Medications: New escitalopram oxalate 20 mg Tablet 20 mg PO DAILY Qty: 0 0RF Continued clonidine HCl 0.1 mg tablet 0.1 mg PO TID clonazepam 0.5 mg tablet 0.5 mg PO BID PRN (Reason: Anxiety) mirtazapine 15 mg tablet 15 mg PO BEDTIME oxcarbazepine 300 mg tablet 300 mg PO BID 150 Days Qty: 0 0RF Discontinued escitalopram oxalate 10 mg tablet 10 mg PO DAILY Discharge Orders: Discharge Order (Routine); Ordered 03/23/23 Ordered By: Mauricio Wong Diet: Advance to usual diet Activity on Discharge: As tolerated Stand Alone Forms: Community Support Care Plan Goals: remain safe and stable in the outpatient treatment setting Health Concerns: none Plan of Treatment: take medications as prescribed, arrange for mental health outpatient services as soon as possible Assessment: not at imminent risk of harm to self or others Discharge Date/Time: 03/23/23 15:20
== END 2023-03-23 15:20 | disposition left against medical advice (07) | DRG 861 ==
LOC: HO.ED 16:14 → HO.PADLT16 03-19 15:17
PROVIDERS: Physician Assistant; Admitting Provider Psychiatry & Neurology Psychiatry; Emergency Provider Emergency Medicine; Visit Provider Psychiatry & Neurology Psychiatry
DX: Z76.5 Malingerer [conscious simulation] (principal); R45.851 Suicidal ideations; Z20.822 Contact with and (suspected) exposure to COVID-19; Z59.02 Unsheltered homelessness; Z91.52 Personal history of nonsuicidal self-harm; Z78.1 Physical restraint status; Z79.899 Other long term (current) drug therapy
CPT/HCPCS: 36415; 80053; 80061; 80143; 80179; 80307; 81001; 82607; 82746; 83036; 84439; 84443; 85025; 87635; 99285; J0515; J1200; J2060; S9485

== ENCOUNTER → 2023-03-19 15:11 | Outpatient (BNV) | payer OTHER, SELFPAY | PROVIDERS: Admitting Provider Psychiatry & Neurology Psychiatry; Emergency Provider Emergency Medicine; Visit Provider Psychiatry & Neurology Psychiatry | DX: Z76.5 Malingerer [conscious simulation] (principal) | CPT/HCPCS: 90792; 99231; 99232; 99239; 99499 ==

== ENCOUNTER 2023-03-23 15:35 | Emergency (ER) | payer OTHER, SELFPAY ==
[2023-03-23 16:07] VITALS: BP 114/71; PULSE 72; RESP 16; TEMP 36.9; O2SAT 100; BMI 25.8
--- NOTE | 2023-03-23 16:10 | ED_ITS ---
HPI - Psych General Chief Complaint: Psychiatric Symptoms Stated Complaint: crisis Time Seen by Provider: 03/23/23 16:38 Source: patient Mode of arrival: ambulatory Limitations: no limitations History of Present Illness HPI Narrative: 28 yo male with PMH of undiagnosed mental illness vs poor social situation he was just treated upstairs and opted to leave. He was upstairs and treated here 03/20 until about 4pm today. He stated he was having AH/VH he was not compliant with care, wanting to go to [facility], asking for his phone, denied SI on discharge, asking for help getting services for fpc. He demanded discharged then presented to the ED. He tells me again he wants transfer to [facility] and that the voices are telling him he is bad and he needs to get right for his daughter. MD complaint: feels depressed and anxiety Onset (ago): week(s) Duration: intermittent History of same: Yes Relieving factors: none Exacerbating factors: other Context: significant life stressor Associated psychiatric symptoms: depression Associated symptoms: denies other symptoms Treatments prior to arrival: none If self harm: admits thoughts of self harm Related Data Home Medications Medication Instructions Recorded Confirmed clonazepam 0.5 mg tablet 0.5 mg PO BID PRN Anxiety 03/18/23 03/18/23 clonidine HCl 0.1 mg tablet 0.1 mg PO TID 03/18/23 03/18/23 mirtazapine 15 mg tablet 15 mg PO BEDTIME 03/18/23 03/18/23 Previous Rx's Medication Instructions Recorded escitalopram oxalate 20 mg tablet 20 mg PO DAILY #0 tabs 03/23/23 oxcarbazepine 300 mg tablet 300 mg PO BID 150 days #0 tabs 03/23/23 Allergies Allergy/AdvReac Type Severity Reaction Status Date / Time No Known Allergies Allergy Verified 03/23/23 16:06 Review of Systems 2 Review of Systems: Constitutional : No Fever, No Chills Cardiovascular : No Chest Pain, No SOB Respiratory : No Cough, No Sputum, No Dyspnea Gastrointestinal : No Nausea, No Vomiting, No Diarrhea, No Hematochezia, No Melena Musculoskeletal : No Myalgias Skin : No Skin Lesions, No rash Neuro : No Weakness, No Numbness, No Paresthesias, No Dizziness, No Headache Psych : positive Anxiety, positive Depression, vague SI no HI All other systems reviewed and are negative PMFSH Past Medical History Source: old records reviewed Medical History Hallucinations Social History Social History Household Members: None Housing: Homeless Alcohol intake: never Patient Tobacco Use Status: Never used Tobacco Advance Directives: No Advance Directives Information Provided: No service: No Sexual orientation: Don't Know Physical Exam 2 Vital Signs: Vital Signs: Last Vital Signs Temp 98.5 F 03/23/23 16:07 Pulse 72 03/23/23 16:07 Resp 16 03/23/23 16:07 BP 114/71 03/23/23 16:07 Pulse Ox 100 03/23/23 16:07 O2 Del Method Room Air 03/23/23 16:07 BMI result Body Mass Index 25.8 Appearance: Alert. Oriented X3. No acute distress. Eyes: Pupils equal, round and reactive to light. ENT: Pharynx normal. Neck: Normal inspection. Neck supple. CVS: Normal heart rate and rhythm. Pulses normal. Respiratory: No respiratory distress. Breath sounds normal. Abdomen: Soft and nontender. Skin: Skin warm and dry. Normal skin color. Normal skin turgor. Extremities: No lower extremity edema. No calf ttp Neuro: Oriented X 3. No motor deficit. No sensory deficit. coherent conversations does not seem to be responding to internal stimuli he is fluent and calm. Course Course Course Narrative: RME - 28 yo male with recent psych admission here 03/20-03/22 (? left AMA) for new onset SI and HI who presents back to the ER with recurrent SI and HI. Plan: labs ordered, to be brought to behavioral pod Medical Decision Making Medical Decision Making MDM Narrative: 28 yo male with PMH of hallucinations just seen and treated upstairs who requested discharge back again stating hallucinations and wanting ot go to [facility] - he is having a very coherent conversation and not responding to internal simtuli. He has no medical complaints he is stable for DC CARE team involved upstairs do not feel he has to be admitted at this time. Differential Diagnosis Differential Diagnoses: The differential diagnosis associated with the presentation includes depression, anxiety, poor social situation Admission/Observation Consideration of admission/observation: Escalation of care including admission/observation considered Consult Healthcare Provider Management of the patient was discussed with: Behavioral Health Provider (care team involved as was providers up stairs through CARE team) Lab Data MDM Lab Attestation statement: I reviewed the patient's lab results. 03/23/23 16:17 03/23/23 16:17 Labs: Lab Results 03/23/23 Range/Units 16:17 WBC 4.7 L (4.8-10.8) X10*3/uL RBC 5.04 (4.60-5.80) X10*6/uL Hgb 12.9 L (14.0-18.0) g/dl Hct 40.2 L (42.0-52.0) % MCV 79.8 L (80.0-98.0) fL MCH 25.6 L (27.0-33.0) pg MCHC 32.1 (31.0-36.0) g/dl RDW 13.7 (11.0-16.0) % Plt Count 154 L (160-400) X10*3/uL MPV 9.7 (9.4-12.4) fL Immature Gran % (Auto) 0.2 (0.0-0.4) % Neut % (Auto) 49.6 (45-73) % Lymph % (Auto) 34.3 (20-40) % Lee % (Auto) 12.3 H (2-11) % Eos % (Auto) 3.0 (0-4) % Baso % (Auto) 0.6 (0-2) % Lymph # (Auto) 1.6 (1.2-4.9) X10*3/uL Lee # (Auto) 0.6 (0.1-1.2) X10*3/uL Eos # (Auto) 0.1 (0.0-0.4) X10*3/uL Baso # (Auto) 0.0 (0.0-0.2) X10*3/uL Abs Immat Gran (auto) 0.01 (0.00-0.03) X10*3/uL Absolute Neuts (auto) 2.3 (2.0-8.3) x10*3/uL Absolute Nucleated RBC 0.000 (0.0-0.012) X10*3/uL Nucleated RBC % (auto) 0.0 (0.0-0.2) /100WBC Sodium 139 (135-145) mmol/L Potassium 4.5 (3.3-5.1) mmol/L Chloride 104 (96-108) mmol/L Carbon Dioxide 26 (22-29) mmol/L Anion Gap 14 (12-20) BUN 21 H (9-16) mg/dL Creatinine 0.94 (0.5-1.4) mg/dL Estim Creat Clear Calc 114.2 Estimated GFR > 60 Random Glucose 88 (60-115) mg/dL Calcium 9.4 (8.4-10.2) mg/dL Magnesium 2.1 (1.6-2.6) mg/dL Total Bilirubin 0.5 (0.0-1.0) mg/dL Direct Bilirubin 0.2 (0.0-0.5) mg/dL AST 48 H (5-37) U/L ALT 52 H (0-40) U/L Alkaline Phosphatase 48 (39-117) U/L Total Protein 7.4 (6.5-8.0) g/dL Albumin 4.4 (3.5-5.0) g/dL Ethyl Alcohol < 10 mg/dL External Record Review External record reviewed: Inpatient record Social Determinants Patient?s care significantly limited by Social Determinants of Health including: Inadequate housing and Problems related to primary support group Discharge Plan Discharge Clinical Impression: Anxiety, Mood disorder Patient Disposition: Home, Self-Care Instructions: Anxiety (ED), Mood Disorders (ED) Additional Instructions: please follow up with your outpatient mental health providers. you can call the national hotline if you have thoughts of self harm it is [phone]. you were just discharged from inpatient and had a safety plan in place please follow up with this and use your resources. Prescriptions: No Action clonidine HCl 0.1 mg tablet 0.1 mg PO TID clonazepam 0.5 mg tablet 0.5 mg PO BID PRN (Reason: Anxiety) mirtazapine 15 mg tablet 15 mg PO BEDTIME oxcarbazepine 300 mg tablet 300 mg PO BID 150 Days Qty: 0 0RF escitalopram oxalate 20 mg Tablet 20 mg PO DAILY Qty: 0 0RF
[2023-03-23 16:20] LABS: MANUAL DIFF FLAG NO
[2023-03-23 16:22] LABS: Basophils Percent Auto 0.6 % (0-2); Eosinophils Absolute Auto 0.1 X10*3/uL (0.0-0.4); Hematocrit 40.2 % (42.0-52.0); Hemoglobin 12.9 g/dl (14.0-18.0); Imm Gran Abs Auto 0.01 X10*3/uL (0.00-0.03); Imm Gran Pct Auto 0.2 % (0.0-0.4); Lymphocytes Absolute Auto 1.6 X10*3/uL (1.2-4.9); Lymphocytes Percent Auto 34.3 % (20-40); Mean Corpuscular HGB Conc 32.1 g/dl (31.0-36.0); Mean Corpuscular Hemoglobin 25.6 pg (27.0-33.0); Mean Corpuscular Volume 79.8 fL (80.0-98.0); Mean Platelet Volume 9.7 fL (9.4-12.4); Monocytes Absolute Auto 0.6 X10*3/uL (0.1-1.2); Monocytes Percent Auto 12.3 % (2-11); Neutrophils Absolute Auto 2.3 x10*3/uL (2.0-8.3); Neutrophils Percent Auto 49.6 % (45-73); Platelet Count 154 X10*3/uL (160-400); Red Blood Count 5.04 X10*6/uL (4.60-5.80); Red Cell Distribution Width 13.7 % (11.0-16.0); White Blood Count 4.7 X10*3/uL (4.8-10.8)
[2023-03-23 16:47] LABS: Alanine Aminotransferase 52 U/L (0-40); Albumin Level 4.4 g/dL (3.5-5.0); Alkaline Phosphatase 48 U/L (39-117); Anion Gap 14 (12-20); Aspartate Amino Transferase 48 U/L (5-37); Bilirubin Direct 0.2 mg/dL (0.0-0.5); Bilirubin Total 0.5 mg/dL (0.0-1.0); Blood Urea Nitrogen 21 mg/dL (9-16); Calcium 9.4 mg/dL (8.4-10.2); Carbon Dioxide 26 mmol/L (22-29); Chloride 104 mmol/L (96-108); Creatinine Clr Calc Pharmacy 114.2; Estimated Glomerular Filt Rate > 60; Ethanol < 10 mg/dL; Glucose Random 88 mg/dL (60-115); Magnesium 2.1 mg/dL (1.6-2.6); Potassium 4.5 mmol/L (3.3-5.1); Sodium 139 mmol/L (135-145); Total Protein 7.4 g/dL (6.5-8.0)
[2023-03-23 17:15] LABS: Appearance Urine Clear; Color Urine Yellow; Glucose Urine UA Negative (Negative); Leukocyte Esterase Urine Negative (Negative); Nitrite Urine Negative (Negative); PH 7.5 (5.0-9.0); Specific Gravity - Urine >= 1.030 (1.005-1.025); Urine Blood Negative (Negative); Urine Ketones Negative (Negative); Urine Protein Negative (Neg-Trace)
--- NOTE | 2023-03-23 17:16 | MHC.CARE ---
POD CANDIDA Mckeon stated that she called [facility] and inquired about the pt who was discharged from [facility] literally 45 minutes ago. [facility] stated that the pt was requesting to leave the unit and stated to [facility] that he was safe to leave. Pt then immediately walked to the ED and re-presented with depression and SI. CANDIDA Mckeon and t/w then went to Dr. Dinh and informed them about the pt being on [facility] and being discharged less than an hour ago. Dr. Dinh spoke with the pt and discharged him to the community prior to the CARE Team assessing him.
--- NOTE | 2023-03-23 17:20 | PC.NURSE ---
Laci denies SI/HI but does endorse feeling like he needs more help what that help is exactly he is having trouble verbalizing. He just left [facility] by choice approx 90 min ago but does state he would like to get treatment at a different hospital . [facility] good because they let you have your phone for one hour each shift . Laci asked for food before discharging and was given 2 turkey sandwiches, a pudding, crackers and some juice.
[2023-03-23 17:21] LABS: Amphetamine Screen Urine Not Detected (Not Detect); Barbiturates, Urine Not Detected (Not Detect); Benzodiazepines Screen Urine Not Detected (Not Detect); Cannabinoid Screen Urine Not Detected (Not Detect); Cocaine Screen Urine Not Detected (Not Detect); Fentanyl, urine Not Detected (Not Detect); Opiate Screen Urine Not Detected (Not Detect); Phencyclidine Screen Urine Not Detected (Not Detect)
== END 2023-03-23 17:18 | disposition home or self-care (01) ==
PROVIDERS: Physician Assistant; Emergency Provider Emergency Medicine
DX: F33.1 Major depressive disorder, recurrent, moderate (principal); F41.1 Generalized anxiety disorder; F43.0 Acute stress reaction; Z79.899 Other long term (current) drug therapy
CPT/HCPCS: 36415; 80048; 80076; 80307; 81003; 83735; 85025; 99283

== ENCOUNTER 2023-03-23 17:44 | Emergency (ER) | payer OTHER, SELFPAY ==
--- NOTE | 2023-03-23 17:58 | ED.PSYCH ---
HPI - Psych General Chief Complaint: Psychiatric Symptoms Stated Complaint: SI w/ plan & attempt Time Seen by Provider: 03/23/23 17:48 Source: patient Mode of arrival: EMS Limitations: no limitations History of Present Illness HPI Narrative: 28 yo male just discharged from our facility after clearance - he then called 911 after using the pudding cup and caused a superficial graham without blood on L forearm he states this was SI attempt and he also wants to put the bag we gave him over his head. He had denied SI to RN he just had AH. He states he needs help and wants to go to [facility] MD complaint: suicidal ideation Onset (ago): hour(s) (unsure he had denies SI now with 10 min) Duration: constant History of same: Yes Relieving factors: none Exacerbating factors: other Context: significant life stressor Associated psychiatric symptoms: suicidal ideation Associated symptoms: denies other symptoms If self harm: admits thoughts of self harm and has plan Related Data Home Medications Medication Instructions Recorded Confirmed clonazepam 0.5 mg tablet 0.5 mg PO BID PRN Anxiety 03/18/23 03/18/23 clonidine HCl 0.1 mg tablet 0.1 mg PO TID 03/18/23 03/18/23 mirtazapine 15 mg tablet 15 mg PO BEDTIME 03/18/23 03/18/23 Previous Rx's Medication Instructions Recorded escitalopram oxalate 20 mg tablet 20 mg PO DAILY #0 tabs 03/23/23 oxcarbazepine 300 mg tablet 300 mg PO BID 150 days #0 tabs 03/23/23 Allergies Allergy/AdvReac Type Severity Reaction Status Date / Time No Known Allergies Allergy Verified 03/23/23 16:06 Review of Systems Review of Systems: Constitutional : No Fever, No Chills Cardiovascular : No Chest Pain, No SOB Respiratory : No Cough, No Sputum, No Dyspnea Gastrointestinal : No Nausea, No Vomiting, No Diarrhea, No Hematochezia, No Melena Genitourinary : No Dysuria, No Urinary Frequency, No Hematuria Musculoskeletal : No Myalgias Skin : No Skin Lesions, No rash Neuro : No Weakness, No Numbness, No Paresthesias, No Dizziness, No Headache Psych : positive Anxiety, positive Depression, positive SI no HI All other systems reviewed and are negative PMFSH Past Medical History Source: old records reviewed Medical History Hallucinations Social History Social History Household Members: None Housing: Homeless Alcohol intake: never Patient Tobacco Use Status: Never used Tobacco Advance Directives: No Advance Directives Information Provided: No service: No Sexual orientation: Don't Know Physical Exam Vital Signs: Vital Signs: Last Vital Signs Resp 18 03/23/23 18:23 BMI result Body Mass Index 30.3 Appearance: Alert. Oriented X3. No acute distress. same appearance as before calm and cooperative Eyes: Pupils equal, round and reactive to light. ENT: Pharynx normal. Neck: Normal inspection. Neck supple. CVS: Pulses normal. Respiratory: No respiratory distress. Abdomen: Soft and nontender. Skin: Skin warm and dry. Normal skin color. barely see graham on L forearm Extremities: no swelling Neuro: Oriented X 3. No motor deficit. No sensory deficit. Medical Decision Making Medical Decision Making [facility] Narrative: 28 yo male with no PMH reported recent hallucinations here with c/o SI with attempt using pudding cup I cannot see any king. At this time will refer to CARE team for consult. Differential Diagnosis Differential Diagnoses: The differential diagnosis associated with the presentation includes depression Consult Healthcare Provider Management of the patient was discussed with: Behavioral Health Provider now wants to leave since we wont transfer to [facility] Lab Data [facility] Lab Attestation statement: I reviewed the patient's lab results. External Record Review External record reviewed: Inpatient record Social Determinants Patient?s care significantly limited by Social Determinants of Health including: Inadequate housing, Low income and Problems related to primary support group Discharge Plan Discharge Clinical Impression: Anxiety Patient Disposition: Home, Self-Care Instructions: Anxiety (ED) Additional Instructions: please refer to your recent discharge instructions Prescriptions: No Action clonidine HCl 0.1 mg tablet 0.1 mg PO TID clonazepam 0.5 mg tablet 0.5 mg PO BID PRN (Reason: Anxiety) mirtazapine 15 mg tablet 15 mg PO BEDTIME oxcarbazepine 300 mg tablet 300 mg PO BID 150 Days Qty: 0 0RF escitalopram oxalate 20 mg Tablet 20 mg PO DAILY Qty: 0 0RF Interventions: ED Discharge Assessment Last Done: 03/23/23 18:36 [place]-Suicide Risk Severity Scale Last Done: 03/23/23 18:36 Discharge Date/Time: 03/23/23 18:37
[2023-03-23 18:23] VITALS: RESP 18; BMI 30.3
--- NOTE | 2023-03-23 18:28 | PC.NURSE ---
Laci was discharged from at 1600 today after requesting to leave. He presented to the emergency room soon after and was seen in the POD where he requested a referral to [facility]. Laci reported feeling safe and denied SI and was discharged. Laci went outside where he sat on the curb and made a superficial scratch to his left forearm and called an ambulance reporting a suicide attempt. Laci came in and again requested to be admitted to [facility]. He is denying SI but continues to verbalize wanting more care and a higher level of care that only [facility] can give him. Laci denied any safety concerns and was discharged again.
== END 2023-03-23 18:37 | disposition home or self-care (01) ==
LOC: HO.ED 18:23
PROVIDERS: Emergency Provider Emergency Medicine
DX: R45.851 Suicidal ideations (principal); F41.1 Generalized anxiety disorder; F43.0 Acute stress reaction; Z79.899 Other long term (current) drug therapy
CPT/HCPCS: 36415; 80048; 80076; 80307; 81003; 83735; 85025; 99283; S9485